=== PATIENT | male | born 1985 | race African-American/Black ===

== ENCOUNTER 2016-12-03 14:19 | Emergency (ER) | payer OTHER ==
[~2016-12-03 14:19] MED LIST: RISP50P IM
[2016-12-03 14:26] VITALS: BP 116/74; PULSE 119; RESP 16; TEMP 99.5; O2SAT 99
[2016-12-03 14:47] VITALS: BP 126/58; PULSE 95; RESP 16; TEMP 99.6; O2SAT 97
[2016-12-03] MEDS ORDERED: TETANUS/DIPHTHERIA TOXOID ADULT 0.5 ML VIAL IM ONE (15:00)
[2016-12-03] MEDS ORDERED: HALOPERIDOL LACTATE 5 MG/ML AMP IV PUSH ONE (15:00)
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
[2016-12-03 15:17] LABS: AUTOMATED NEUTROPHIL # 5.4 TH/MM3 (1.8-7.7); BASOPHIL % 0.4 % (0.0-2.0); EOSINOPHIL # 0.1 TH/MM3 (0-0.4); EOSINOPHIL % 1.1 % (0.0-4.0); HEMO FLAGS DIFF FINAL; LYMPH % 16.2 % (9.0-44.0); LYMPHOCYTE # 1.1 TH/MM3 (1.0-4.8); MEAN CELL VOLUME 86.6 FL (80.0-100.0); MEAN CORPUSCULAR HEMOGLOBIN 29.1 PG (27.0-34.0); MEAN CORPUSCULAR HGB CONC 33.6 % (32.0-36.0); MONO % 5.8 % (0.0-8.0); NEUT % 76.5 % (16.0-70.0); PLATELET COUNT 221 TH/MM3 (150-450); RED BLOOD COUNT 5.08 MIL/MM3 (4.50-5.90); RED CELL DISTRIBUTION WIDTH 13.7 % (11.6-17.2); WHITE BLOOD COUNT 7.1 TH/MM3 (4.0-11.0)
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
[2016-12-03 15:45] LABS: ANION GAP 9 MEQ/L (5-15); AST (GOT) 31 U/L (15-37); BICARBONATE 22.7 MEQ/L (21.0-32.0); BLOOD UREA NITROGEN 12 MG/DL (7-18); CHLORIDE 106 MEQ/L (98-107); GLOMERULAR FILTRATION RATE 70 ML/MIN (>89); POTASSIUM 4.3 MEQ/L (3.5-5.1); SODIUM (NA) 138 MEQ/L (136-145)
[2016-12-03 15:48] LABS: ALKALINE PHOSPHATASE 58 U/L (45-117); ALT (GPT) 26 U/L (12-78); TOTAL BILIRUBIN ADULT 0.6 MG/DL (0.2-1.0)
[2016-12-03 15:49] LABS: ALCOHOL LESS THAN 3 MG/DL (0-5)
--- NOTE | 2016-12-03 19:08 | PD ---
Physical Exam Date Seen by Provider: Dec 03, 2016 Time Seen by Provider: 16:45 Data Data Last Documented VS Vital Signs Date Time Temp Pulse Resp B/P (MAP) Pulse Ox O2 Delivery O2 Flow Rate FiO2 12/03/16 14:47 99.6 95 16 126/58 (80) 97 Room Air Orders Orders Complete Blood Count With Diff (12/03/16 14:46) Comprehensive Metabolic Panel (12/03/16 14:46) Psych Screen (12/03/16 14:46) ^ Insert Iv (12/03/16 14:46) Drug Screen, Random Urine (12/03/16 14:46) Alcohol (Ethanol) (12/03/16 14:46) Ct Brain W/O Iv Contrast(Rout) (12/03/16 ) Ct Cerv Spine W/O Contrast (12/03/16 ) Tetanus/Diphtheria Tox Adult (Tetanus/Di (12/03/16 15:00) Haloperidol Inj (Haldol Inj) (12/03/16 15:00) Diet Regular Basic (12/03/16 Dinner) Labs Laboratory Tests Test 12/03/16 15:00 12/03/16 15:40 White Blood Count 7.1 TH/MM3 Red Blood Count 5.08 MIL/MM3 Hemoglobin 14.8 GM/DL Hematocrit 44.0 % Mean Corpuscular Volume 86.6 FL Mean Corpuscular Hemoglobin 29.1 PG Mean Corpuscular Hemoglobin Concent 33.6 % Red Cell Distribution Width 13.7 % Platelet Count 221 TH/MM3 Mean Platelet Volume 7.9 FL Neutrophils (%) (Auto) 76.5 % Lymphocytes (%) (Auto) 16.2 % Monocytes (%) (Auto) 5.8 % Eosinophils (%) (Auto) 1.1 % Basophils (%) (Auto) 0.4 % Neutrophils # (Auto) 5.4 TH/MM3 Lymphocytes # (Auto) 1.1 TH/MM3 Monocytes # (Auto) 0.4 TH/MM3 Eosinophils # (Auto) 0.1 TH/MM3 Basophils # (Auto) 0.0 TH/MM3 CBC Comment DIFF FINAL Differential Comment Blood Urea Nitrogen 12 MG/DL Creatinine 1.43 MG/DL Random Glucose 69 MG/DL Total Protein 7.7 GM/DL Albumin 4.3 GM/DL Calcium Level 9.3 MG/DL Alkaline Phosphatase 58 U/L Aspartate Amino Transf (AST/SGOT) 31 U/L Alanine Aminotransferase (ALT/SGPT) 26 U/L Total Bilirubin 0.6 MG/DL Sodium Level 138 MEQ/L Potassium Level 4.3 MEQ/L Chloride Level 106 MEQ/L Carbon Dioxide Level 22.7 MEQ/L Anion Gap 9 MEQ/L Estimat Glomerular Filtration Rate 70 ML/MIN Ethyl Alcohol Level LESS THAN 3 MG/DL Urine Opiates Screen NEG Urine Barbiturates Screen NEG Urine Amphetamines Screen NEG Urine Benzodiazepines Screen NEG Urine Cocaine Screen NEG Urine Cannabinoids Screen NEG MDM Medical Record Reviewed: Yes Supervised Visit with ANA: Yes Narrative Course I was asked by provider to repair a scalp laceration located on the left parietal region. The laceration extends from the frontal portion to the parietal region. There is a portion of the laceration extending down to the forehead. The patient was a 31-year-old alert and oriented male in no acute distress. He was anxious about the laceration repair but cooperative. The laceration was repaired. Please see my procedural narrative for details. Dr. Hernandez retains care for this patient. Please see her documentation for details and disposition. Procedures Procedure Narrative LACERATION LOCATION: Left parietal region of scalp LENGTH: 4 cm NUMBER OF STITCHES/ERNESTO: 6 Stuart REPAIR: The area of the laceration was prepped with Betadine and sterilely draped. The laceration was infiltrated with 1% lidocaine. The wound was copiously irrigated and explored without evidence of foreign body, tendon injury or neurovascular injury. The wound was closed using Ernesto. This was a single layer repair. A sterile dressing was applied. The patient was advised to keep the dressing clean and dry. Patient tolerated the procedure well. LACERATION LOCATION: Left forehead LENGTH: 2 cm NUMBER OF STITCHES/ERNESTO: 2 sutures REPAIR: The area of the laceration was prepped with Betadine and sterilely draped. The laceration was infiltrated with 1% lidocaine. The wound was copiously irrigated and explored without evidence of foreign body, tendon injury or neurovascular injury. The wound was closed using 4. 0 Prolene. This was a single layer repair. A sterile dressing was applied. The patient was advised to keep the dressing clean and dry. Patient tolerated the procedure well. Scripts No Active Prescriptions or Reported Meds Snow Small Dec 03, 2016 19:08
[2016-12-04] MEDS ORDERED: HALO1TAB PO (00:59)
[2016-12-04 02:26] VITALS: BP 125/61; PULSE 95; RESP 17; O2SAT 100
[2016-12-04 06:33] VITALS: BP 138/76; PULSE 79; RESP 16; O2SAT 100
[2016-12-04 10:54] VITALS: BP 126/64; PULSE 81; RESP 20
[2016-12-04 17:34] VITALS: BP 140/78; PULSE 91; RESP 18; O2SAT 99
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
[2016-12-05 06:21] VITALS: BP 120/75; PULSE 78; RESP 17; O2SAT 100
[2016-12-05] MEDS ORDERED: ZIPRASIDONE MESYLATE 20 MG VIAL IM ONE (13:45)
[2016-12-05] MEDS ORDERED: diphenhydrAMINE HCL 50 MG/ML VIAL IM ONE (13:45)
[2016-12-05 14:34] VITALS: BP 130/77; PULSE 94; RESP 18
== END 2016-12-05 17:51 ==
LOC: NEPD 14:19 → NEPJ 12-05 17:51
DX: F20.0 Paranoid schizophrenia (principal); S01.01XA Laceration without foreign body of scalp, initial encounter; S01.81XA Laceration without foreign body of other part of head, initial encounter; Y00.XXXA Assault by blunt object, initial encounter; Z23 Encounter for immunization
CPT/HCPCS: 12002; 12011; 70450; 72125; 80053; 80307; 85025; 90471; 90714; 96372; 96374; 99285; J1200; J1630; J3486

== ENCOUNTER 2017-03-21 14:56 | Emergency (ER) | payer OTHER ==
[~2017-03-21 14:56] MED LIST changes: +HALO1TAB PO; -RISP50P IM
[2017-03-21 15:35] VITALS: BP 132/80; PULSE 103; RESP 18; TEMP 99.4; O2SAT 96
[2017-03-21 16:37] LABS: AUTOMATED NEUTROPHIL # 3.2 TH/MM3 (1.8-7.7); BASOPHIL % 0.6 % (0.0-2.0); EOSINOPHIL # 0.2 TH/MM3 (0-0.4); EOSINOPHIL % 3.5 % (0.0-4.0); HEMATOCRIT 47.5 % (39.0-51.0); HEMOGLOBIN 16.3 GM/DL (13.0-17.0); LYMPH % 42.3 % (9.0-44.0); LYMPHOCYTE # 2.8 TH/MM3 (1.0-4.8); MEAN CORPUSCULAR HEMOGLOBIN 29.5 PG (27.0-34.0); MEAN CORPUSCULAR HGB CONC 34.2 % (32.0-36.0); MEAN PLATELET VOLUME 8.3 FL (7.0-11.0); MONO % 5.3 % (0.0-8.0); MONOCYTE # 0.4 TH/MM3 (0-0.9); NEUT % 48.3 % (16.0-70.0); PLATELET COUNT 231 TH/MM3 (150-450); RED BLOOD COUNT 5.52 MIL/MM3 (4.50-5.90); RED CELL DISTRIBUTION WIDTH 13.6 % (11.6-17.2); WHITE BLOOD COUNT 6.6 TH/MM3 (4.0-11.0)
[2017-03-21 16:58] LABS: ACETAMINOPHEN LESS THAN 2.0 MCG/ML (10.0-30.0); ALKALINE PHOSPHATASE 58 U/L (45-117); ALT (GPT) 24 U/L (12-78); AST (GOT) 20 U/L (15-37); BICARBONATE 23.1 MEQ/L (21.0-32.0); BLOOD UREA NITROGEN 16 MG/DL (7-18); CALCIUM 8.8 MG/DL (8.5-10.1); CHLORIDE 107 MEQ/L (98-107); CREATININE 1.32 MG/DL (0.60-1.30); GLOMERULAR FILTRATION RATE 77 ML/MIN (>89); GLUCOSE,RANDOM 92 MG/DL (74-106); SODIUM (NA) 138 MEQ/L (136-145); TOTAL BILIRUBIN ADULT 0.3 MG/DL (0.2-1.0); TOTAL PROTEIN 7.6 GM/DL (6.4-8.2)
--- NOTE | 2017-03-21 17:01 | PD ---
HPI Chief Complaint: Psychiatric Symptoms Time Seen by Provider: 16:33 Travel History International Travel<30 days: No Contact w/Intl Traveler<30days: No Traveled to known affect area: No History of Present Illness HPI 31-year-old male that presents to the ED for evaluation of Santamaria act. Patient was Santamaria acted by police after mother contacted them secondary to patient's bizarre behavior. Patient does have a history of schizophrenia. Has been seen here in the past for similar. He is somewhat psychotic and history is very limited from the patient. He denies having any medical problems psychiatric illness. He does appear to be interacting with internal stimuli. He denies any suicidal or homicidal ideation to me. Denies taking any medications. Drugs or alcohol. Unclear as to the length of symptoms with appears to have worsened today. Again history is limited because of patient's mental status. Symptoms are severe. Nothing appears to make them worse or better. PFSH Past Medical History Blood Disorders: No Anxiety: No Depression: No Cancer: No Cardiovascular Problems: No Cerebrovascular Accident: No Diminished Hearing: No Endocrine: No Genitourinary: No Headaches: No Immune Disorder: No Musculoskeletal: No Neurologic: No Psychiatric: Yes (PSYCHOSIS) Reproductive: No Respiratory: No Immunizations Current: Yes Migraines: No Schizophrenia: Yes Seizures: No ?: Not Past Surgical History Abdominal Surgery: No AICD: No Arteriovenous Shunt: No Cardiac Surgery: No Ear Surgery: No Endocrine Surgery: No Eye Surgery: No Genitourinary Surgery: No Gynecologic Surgery: No Insulin Pump: No Joint Replacement: No Oral Surgery: No Pacemaker: No Thoracic Surgery: No Social History Alcohol Use: Yes (OCCASIONALLY) Tobacco Use: Yes (1/3 PPD) Substance Use: Yes (Natural Light (occ.), 1p/2-3days, marij.) Allergies-Medications (Allergen,Severity, Reaction): Coded Allergies: Fish Containing Products (Unverified Allergy, Severe, 12/03/16) Reported Meds & Prescriptions Reported Meds & Active Scripts Active Reported Haloperidol 1 Mg Tab Unknown Dose PO BID Review of Systems ROS Limitations: Psychotic, Poor Historian Except as stated in HPI: all other systems reviewed are Neg Physical Exam Exam Limitations: Poor Historian, Psychotic Narrative GENERAL: SKIN: Warm and dry. HEAD: Atraumatic. Normocephalic. EYES: Pupils equal and round. No scleral icterus. No injection or drainage. ENT: No nasal bleeding or discharge. Mucous membranes pink and moist. Tongue is midline. No uvula deviation. NECK: Trachea midline. No JVD. CARDIOVASCULAR: Regular rate and rhythm. No murmurs, S3, S4. RESPIRATORY: No accessory muscle use. Clear to auscultation. Breath sounds equal bilaterally. GASTROINTESTINAL: Abdomen soft, non-tender, nondistended. Hepatic and splenic margins not palpable. MUSCULOSKELETAL: Extremities without clubbing, cyanosis, or edema. No obvious deformities. NEUROLOGICAL: Awake and alert. No obvious cranial nerve deficits. Motor grossly within normal limits. Five out of 5 muscle strength in the arms and legs. Normal speech. PSYCHIATRIC: psychotic mood and affect; insight and judgment minimal Data Data Last Documented VS Vital Signs Date Time Temp Pulse Resp B/P (MAP) Pulse Ox O2 Delivery O2 Flow Rate FiO2 03/21/17 15:35 99.4 103 18 132/80 (97) 96 Room Air Orders Orders Diet Regular Basic (03/21/17 Dinner) Complete Blood Count With Diff (03/21/17 15:43) Comprehensive Metabolic Panel (03/21/17 15:43) Psych Screen (03/21/17 15:43) Drug Screen, Random Urine (03/21/17 15:43) Alcohol (Ethanol) (03/21/17 15:43) Salicylates (Aspirin) (03/21/17 15:43) Tylenol (Acetaminophen) (03/21/17 15:43) Labs Laboratory Tests Test 03/21/17 15:25 White Blood Count 6.6 TH/MM3 Red Blood Count 5.52 MIL/MM3 Hemoglobin 16.3 GM/DL Hematocrit 47.5 % Mean Corpuscular Volume 86.0 FL Mean Corpuscular Hemoglobin 29.5 PG Mean Corpuscular Hemoglobin Concent 34.2 % Red Cell Distribution Width 13.6 % Platelet Count 231 TH/MM3 Mean Platelet Volume 8.3 FL Neutrophils (%) (Auto) 48.3 % Lymphocytes (%) (Auto) 42.3 % Monocytes (%) (Auto) 5.3 % Eosinophils (%) (Auto) 3.5 % Basophils (%) (Auto) 0.6 % Neutrophils # (Auto) 3.2 TH/MM3 Lymphocytes # (Auto) 2.8 TH/MM3 Monocytes # (Auto) 0.4 TH/MM3 Eosinophils # (Auto) 0.2 TH/MM3 Basophils # (Auto) 0.0 TH/MM3 CBC Comment DIFF FINAL Differential Comment Salicylates Level 3.5 MG/DL MDM Medical Decision Making Medical Screen Exam Complete: Yes Emergency Medical Condition: Yes Medical Record Reviewed: Yes Interpretation(s) CBC Diagram 03/21/17 15:25 Differential Diagnosis Depression versus suicidal ideation versus anxiety versus adjustment disorder versus mood disorder versus bipolar disorder versus schizophrenia versus paranoid disorder versus psychosis versus substance abuse versus alcohol abuse versus alcohol induced psychosis versus homicidality addition versus cutting versus personality disorder Narrative Course 31-year-old male that presents to the ED for evaluation of psychosis. Patient was properly examined and was found to have signs and symptoms consistent psychiatric illness. No sign of acute medical distress. Labs were drawn. Patient was medically clear. Okay to be seen by psych. Mental health screening was discussed with the patient. Diagnosis Primary Impression: Schizophrenia Qualified Codes: F20.9 - Schizophrenia, unspecified Mikael Hernández Mar 21, 2017 17:01
[2017-03-21 23:52] VITALS: BP 123/61; PULSE 74; RESP 17; TEMP 97.9; O2SAT 98
== END 2017-03-22 00:53 ==
LOC: NEPJ 14:56
DX: F20.9 Schizophrenia, unspecified (principal); F17.200 Nicotine dependence, unspecified, uncomplicated; Z79.899 Other long term (current) drug therapy
CPT/HCPCS: 80053; 80307; 85025; 99285